=== PATIENT | male | born 1945 | race Caucasian/White ===

== ENCOUNTER → 2016-08-31 | Outpatient (CLI) | payer OTHER | END | disposition home or self-care (01) | LOC: PCVCIMAG 13:52 | PROVIDERS: ATTEND Internal Medicine Cardiovascular Disease | DX: Z01.810 Encounter for preprocedural cardiovascular examination (principal); I42.8 Other cardiomyopathies; Z95.0 Presence of cardiac pacemaker | CPT/HCPCS: 93306 ==